=== PATIENT | female | born 1960 | race Caucasian/White ===

== ENCOUNTER 2020-07-09 07:37 | Outpatient (CLI) | payer BC, SELFPAY ==
[2020-07-09 08:23] LABS: Basophils Percent Auto 0.7 % (0.2-1.2); Eosinophils Absolute Auto 0.1 K/mm3 (0-0.3); Eosinophils Percent Auto 2.3 % (0-4.4); Hematocrit 43.9 % (37.0-47.0); Hemoglobin 13.9 g/dL (12.0-15.0); Immature Granulocyte Absolute 0.01 K/mm3 (0.00-0.031); Immature Granulocyte Percent A 0.2 % (0-0.5); Lymphocytes Absolute Auto 1.78 K/mm3 (0.9-3.2); Lymphocytes Percent Auto 30.8 % (18.3-44.2); Mean Corpuscular HGB Conc 31.7 g/dl (32-36); Mean Corpuscular Hemoglobin 30.4 pg (26-34); Mean Corpuscular Volume 96.1 fl (80-100); Mean Platelet Volume 9.9 fl (7.4-10.4); Monocytes Absolute Auto 0.5 K/mm3 (0.1-0.6); Monocytes Percent Auto 8.3 % (2.6-8.5); Neutrophils Absolute Auto 3.3 K/mm3 (1.3-6.7); Neutrophils Percent Auto 57.7 % (45.5-73.1); Platelet Count Result 365 k/mm3 (150-375); Red Blood Count 4.57 M/mm3 (4.2-5.4); Red Cell Distribution Width 13.4 % (11.5-14.5); White Blood Count 5.8 K/mm3 (4.5-10.0)
[2020-07-09 08:43] LABS: Alanine Aminotransferase 20 U/L (4-35); Albumin Level 4.6 g/dL (3.5-5.1); Alkaline Phosphatase 72 U/L (38-126); Anion Gap 8 mmol/L (8-16); Aspartate Amino Transferase 34 U/L (14-36); Bilirubin,Total 0.6 mg/dL (0.2-1.3); Blood Urea Nitrogen 16 mg/dL (7-17); Calcium 9.6 mg/dL (8.4-10.2); Carbon Dioxide 29 mmol/L (22-30); Chloride 102 mmol/L (98-107); Cholesterol 310 mg/dL (0-200); Estimated Glomerular Filt Rate > 60; Glucose 98 mg/dL (65-105); HDL Direct 88 mg/dL; Sodium 139 mmol/L (137-145); Triglycerides 116 mg/dL (<150)
[2020-07-09 08:54] LABS: LDL Cholesterol Direct 164 mg/dL
[2020-07-09 09:40] LABS: Thyroid Stimulating Hormone > 100.000 uIU/mL (0.465-4.680)
[2020-07-09 09:42] LABS: Free T4 Free Thyroxine 0.16 ng/mL (0.78-2.19)
[2020-07-09 09:47] LABS: Folic Acid 16.4 ng/mL (2.76->20)
== END 2020-07-09 07:38 | disposition home or self-care (01) ==
PROVIDERS: Family Provider Internal Medicine; PCP Internal Medicine; Visit Provider Internal Medicine
DX: Z00.00 Encounter for general adult medical examination without abnormal findings (principal); R53.83 Other fatigue; E03.9 Hypothyroidism, unspecified
CPT/HCPCS: 36415; 80053; 80061; 82607; 82746; 84439; 84443; 85025

== ENCOUNTER 2020-07-28 08:00 | Outpatient (CLI) | payer BC, SELFPAY ==
--- NOTE | ~2020-07-28 | MM_ITS ---
EXAMINATION: MM screening tray BI w wander HISTORY: Screening mammogram TECHNIQUE: Craniocaudal and mediolateral oblique 3-D tomosynthesis images were obtained and synthetic 2-D images were generated. CAD analysis was submitted and interpreted. COMPARISON: 05/13/2017, 05/07/2016, 05/05/2015 bilateral digital screening mammogram examinations BREAST PARENCHYMAL COMPOSITION: There are scattered areas of fibroglandular density. FINDINGS: There is no evidence of suspicious mass, calcification, or architectural distortion to sugg est malignancy in either breast. There has been no suspicious interval change. IMPRESSION: 1. No mammographic evidence of malignancy. 2. Recommend routine screening mammography in one year. BI-RADS Category 1: Negative Reviewed, dictated and finalized at location A. 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
== END 2020-07-28 08:01 | disposition home or self-care (01) ==
LOC: ANHIMG 08:05
PROVIDERS: PCP Internal Medicine; Visit Provider Nurse Practitioner Obstetrics & Gynecology
DX: Z12.31 Encounter for screening mammogram for malignant neoplasm of breast (principal)
CPT/HCPCS: 77063; 77067

== ENCOUNTER 2021-04-28 09:26 | Outpatient (CLI) | payer BC, SELFPAY ==
[2021-04-28 09:51] LABS: Hemoglobin 13.9 g/dL (12.0-15.0); Mean Corpuscular HGB Conc 32.3 g/dl (32-36); Mean Corpuscular Hemoglobin 30.5 pg (26-34); Mean Corpuscular Volume 94.3 fl (80-100); Mean Platelet Volume 9.5 fl (7.4-10.4); Platelet Count Result 375 k/mm3 (150-375); Red Blood Count 4.56 M/mm3 (4.2-5.4); Red Cell Distribution Width 12.3 % (11.5-14.5); White Blood Count 5.9 K/mm3 (4.5-10.0)
[2021-04-28 10:06] LABS: Alanine Aminotransferase 25 U/L (4-35); Albumin Level 4.6 g/dL (3.5-5.1); Alkaline Phosphatase 87 U/L (38-126); Anion Gap 9 mmol/L (8-16); Aspartate Amino Transferase 29 U/L (14-36); Bilirubin,Total 0.5 mg/dL (0.2-1.3); Blood Urea Nitrogen 20 mg/dL (7-17); Calcium 9.6 mg/dL (8.4-10.2); Carbon Dioxide 28 mmol/L (22-30); Chloride 104 mmol/L (98-107); Cholesterol 239 mg/dL (0-200); Estimated Glomerular Filt Rate > 60; Glucose 102 mg/dL (65-110); HDL Direct 81 mg/dL; Potassium 4.4 mmol/L (3.4-5.0); Sodium 141 mmol/L (137-145); Triglycerides 57 mg/dL (<150)
[2021-04-28 10:17] LABS: LDL Cholesterol Direct 116 mg/dL
[2021-04-28 10:24] LABS: Free T4 Free Thyroxine 1.05 ng/mL (0.78-2.19)
[2021-04-28 11:12] LABS: Folic Acid 9.9 ng/mL (2.76->20)
== END 2021-04-28 09:27 | disposition home or self-care (01) ==
LOC: ANHLAB 09:28
PROVIDERS: PCP Internal Medicine; Visit Provider Physician Assistant
DX: Z00.00 Encounter for general adult medical examination without abnormal findings (principal)
CPT/HCPCS: 36415; 80053; 80061; 82607; 82746; 84439; 84443; 85027

== ENCOUNTER 2021-05-03 08:59 | Outpatient (CLI) | payer BC, SELFPAY ==
--- NOTE | ~2021-05-03 | XR_ITS ---
XR chest 2V DATE: 05/03/2021 09:11 INDICATION: Productive cough for months TECHNIQUE: PA and lateral views COMPARISON: 10/23/2018 2 view chest FINDINGS: Normal heart size. No hilar or mediastinal enlargement. No pulmonary infiltrate or consolid ation, pleural effusion or pulmonary vascular congestion or pneumothorax. Minimal thoracic scoliosis. Old healed left posterolateral fourth rib fracture. IMPRESSION: No active cardiopulmonary disease Reviewed, dictated and finalized at location A. 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
== END 2021-05-03 09:00 | disposition home or self-care (01) ==
LOC: ANHIMG 09:00
PROVIDERS: PCP Internal Medicine; Visit Provider Physician Assistant
DX: R05.9 Cough, unspecified (principal); M41.9 Scoliosis, unspecified
CPT/HCPCS: 71046

== ENCOUNTER 2021-10-04 07:54 | Outpatient (CLI) | payer BC, SELFPAY ==
--- NOTE | ~2021-10-04 | MM_ITS ---
EXAMINATION: MM screening tray BI w wander HISTORY: Screening mammogram TECHNIQUE: Craniocaudal and mediolateral oblique 3-D tomosynthesis images were obtained and synthetic 2-D images were generated. CAD analysis was submitted and interpreted. COMPARISON: July 28, 2020, May 13, 2017, May 07, 2016 bilateral screening mammogram exa minations BREAST PARENCHYMAL COMPOSITION: There are scattered areas of fibroglandular density. FINDINGS: There is no evidence of suspicious mass, calcification, or architectural distortion to sugg est malignancy in either breast. There has been no suspicious interval change. IMPRESSION: 1. No mammographic evidence of malignancy. 2. Recommend routine screening mammography in one year. BI-RADS Category 1: Negative Reviewed, dictated and finalized at location A.
== END 2021-10-04 07:55 | disposition home or self-care (01) ==
LOC: ANHIMG 07:55
PROVIDERS: PCP Internal Medicine; Visit Provider Internal Medicine
DX: Z12.31 Encounter for screening mammogram for malignant neoplasm of breast (principal)
CPT/HCPCS: 77063; 77067

== ENCOUNTER 2022-06-04 07:31 | Outpatient (CLI) | payer BC, SELFPAY ==
[2022-06-04 08:00] LABS: Basophils Absolute Auto 0.1 K/mm3 (0.0-0.1); Basophils Percent Auto 0.8 % (0.2-1.2); Eosinophils Absolute Auto 0.1 K/mm3 (0-0.3); Eosinophils Percent Auto 1.6 % (0-4.4); Hematocrit 44.8 % (37.0-47.0); Hemoglobin 14.3 g/dL (12.0-15.0); Immature Granulocyte Absolute 0.02 K/mm3 (0.00-0.031); Immature Granulocyte Percent A 0.3 % (0-0.5); Lymphocytes Absolute Auto 2.01 K/mm3 (0.9-3.2); Lymphocytes Percent Auto 32.2 % (18.3-44.2); Mean Corpuscular HGB Conc 31.9 g/dl (32-36); Mean Corpuscular Hemoglobin 29.9 pg (26-34); Mean Corpuscular Volume 93.5 fl (80-100); Mean Platelet Volume 9.9 fl (7.4-10.4); Monocytes Absolute Auto 0.5 K/mm3 (0.1-0.6); Neutrophils Absolute Auto 3.6 K/mm3 (1.3-6.7); Neutrophils Percent Auto 57.1 % (45.5-73.1); Platelet Count Result 350 k/mm3 (150-375); Red Blood Count 4.79 M/mm3 (4.2-5.4); Red Cell Distribution Width 13.2 % (11.5-14.5); White Blood Count 6.2 K/mm3 (4.5-10.0)
[2022-06-04 08:32] LABS: Free T4 Free Thyroxine 0.21 ng/mL (0.78-2.19)
[2022-06-04 08:58] LABS: Alanine Aminotransferase 22 U/L (6-35); Albumin Level 4.1 g/dL (3.5-5.1); Alkaline Phosphatase 58 U/L (38-126); Anion Gap 5 mmol/L (8-16); Aspartate Amino Transferase 32 U/L (14-36); Bilirubin,Total 0.5 mg/dL (0.2-1.3); Blood Urea Nitrogen 16 mg/dL (7-17); Calcium 9.2 mg/dL (8.4-10.2); Carbon Dioxide 29 mmol/L (22-30); Chloride 105 mmol/L (98-107); Cholesterol 285 mg/dL (0-200); Estimated Glomerular Filt Rate 57; Glucose 93 mg/dL (65-110); HDL Direct 78 mg/dL; Potassium 4.5 mmol/L (3.4-5.0); Sodium 139 mmol/L (137-145); Triglycerides 145 mg/dL (<150)
[2022-06-04 09:09] LABS: LDL Cholesterol Direct 145 mg/dL
[2022-06-04 09:34] LABS: Thyroid Stimulating Hormone > 100.000 uIU/mL (0.465-4.680)
[2022-06-04 10:02] LABS: Folic Acid 13.2 ng/mL (2.76->20)
[2022-06-07 03:22] LABS: Thyroid Peroxidase Antibodies 14 IU/mL (<9)
== END 2022-06-04 07:32 | disposition home or self-care (01) ==
LOC: ANHLAB 07:33
PROVIDERS: PCP Internal Medicine; Visit Provider Physician Assistant
DX: Z00.00 Encounter for general adult medical examination without abnormal findings (principal); E03.9 Hypothyroidism, unspecified
CPT/HCPCS: 36415; 80053; 80061; 82607; 82746; 84439; 84443; 85025; 86376

== ENCOUNTER 2022-08-07 10:22 | Outpatient (CLI) | payer BC, SELFPAY ==
[2022-08-07 12:14] LABS: Free T4 Free Thyroxine 1.27 ng/mL (0.78-2.19)
[2022-08-07 12:22] LABS: Influenza A QL RT-PCR Negative (Negative); Influenza B QL RT-PCR Negative (Negative); SARS-CoV-2 RNA PCR Positive
== END 2022-08-07 10:23 | disposition home or self-care (01) ==
LOC: ANHLAB 10:24
PROVIDERS: PCP Internal Medicine; Referring Provider Physician Assistant; Visit Provider Internal Medicine
DX: J02.9 Acute pharyngitis, unspecified (principal); E03.9 Hypothyroidism, unspecified; U07.1 COVID-19
CPT/HCPCS: 36415; 84439; 84443; 87636

== ENCOUNTER 2022-11-10 06:59 | Outpatient (CLI) | payer BC, SELFPAY ==
[2022-11-10 09:12] LABS: Thyroid Stimulating Hormone 0.098 uIU/mL (0.465-4.680)
[2022-11-10 11:07] LABS: Free T4 Free Thyroxine 1.67 ng/mL (0.78-2.19)
== END 2022-11-10 07:00 | disposition home or self-care (01) ==
LOC: ANHLAB 07:01
PROVIDERS: PCP Internal Medicine; Visit Provider Physician Assistant
DX: E03.9 Hypothyroidism, unspecified (principal)
CPT/HCPCS: 36415; 84439; 84443

== ENCOUNTER 2022-12-25 06:35 | Outpatient (CLI) | payer BC, SELFPAY ==
[2022-12-25 07:35] LABS: Free T4 Free Thyroxine 1.17 ng/mL (0.78-2.19)
== END 2022-12-25 06:36 | disposition home or self-care (01) ==
LOC: ANHLAB 06:36
PROVIDERS: PCP Internal Medicine; Visit Provider Physician Assistant
DX: E03.9 Hypothyroidism, unspecified (principal)
CPT/HCPCS: 36415; 84439; 84443

== ENCOUNTER 2023-05-04 06:53 | Outpatient (CLI) | payer BC, SELFPAY ==
[2023-05-04 08:00] LABS: Thyroid Stimulating Hormone < 0.015 uIU/mL (0.465-4.680)
[2023-05-04 08:47] LABS: Free T4 Free Thyroxine 1.69 ng/mL (0.78-2.19)
== END 2023-05-04 06:54 | disposition home or self-care (01) ==
LOC: ANHLAB 06:54
PROVIDERS: PCP Internal Medicine; Visit Provider Physician Assistant
DX: E03.9 Hypothyroidism, unspecified (principal)
CPT/HCPCS: 36415; 84439; 84443

== ENCOUNTER 2023-06-26 06:55 | Outpatient (CLI) | payer BC, SELFPAY ==
[2023-06-26 07:42] LABS: Basophils Percent Auto 0.7 % (0.2-1.2); Eosinophils Absolute Auto 0.1 K/mm3 (0-0.3); Eosinophils Percent Auto 1.4 % (0-4.4); Hematocrit 42.2 % (37.0-47.0); Hemoglobin 13.5 g/dL (12.0-15.0); Immature Granulocyte Absolute 0.01 K/mm3 (0.00-0.031); Immature Granulocyte Percent A 0.2 % (0-0.5); Lymphocytes Absolute Auto 2.31 K/mm3 (0.9-3.2); Lymphocytes Percent Auto 39.1 % (18.3-44.2); Mean Corpuscular Hemoglobin 28.6 pg (26-34); Mean Corpuscular Volume 89.4 fl (80-100); Mean Platelet Volume 9.8 fl (7.4-10.4); Monocytes Absolute Auto 0.6 K/mm3 (0.1-0.6); Monocytes Percent Auto 9.3 % (2.6-8.5); Neutrophils Absolute Auto 2.9 K/mm3 (1.3-6.7); Neutrophils Percent Auto 49.3 % (45.5-73.1); Platelet Count Result 392 k/mm3 (150-375); Red Blood Count 4.72 M/mm3 (4.2-5.4); Red Cell Distribution Width 11.9 % (11.5-14.5); White Blood Count 5.9 K/mm3 (4.5-10.0)
[2023-06-26 07:51] LABS: Alanine Aminotransferase 17 U/L (6-35); Albumin Level 4.1 g/dL (3.5-5.1); Alkaline Phosphatase 87 U/L (38-126); Anion Gap 8 mmol/L (8-16); Aspartate Amino Transferase 28 U/L (14-36); Bilirubin,Total 0.5 mg/dL (0.2-1.3); Blood Urea Nitrogen 20 mg/dL (7-17); Calcium 9.3 mg/dL (8.4-10.2); Carbon Dioxide 27 mmol/L (22-30); Chloride 104 mmol/L (98-107); Cholesterol 215 mg/dL (0-200); Estimated Glomerular Filt Rate > 60; Glucose 87 mg/dL (65-110); HDL Direct 67 mg/dL; Potassium 4.1 mmol/L (3.4-5.0); Sodium 139 mmol/L (137-145); Triglycerides 67 mg/dL (<150)
[2023-06-26 08:02] LABS: LDL Cholesterol Direct 101 mg/dL
[2023-06-26 08:17] LABS: Thyroid Stimulating Hormone < 0.015 uIU/mL (0.465-4.680)
[2023-06-26 08:18] LABS: Free T4 Free Thyroxine 2.31 ng/mL (0.78-2.19)
== END 2023-06-26 06:56 | disposition home or self-care (01) ==
LOC: ANHLAB 06:56
PROVIDERS: PCP Internal Medicine; Visit Provider Physician Assistant
DX: Z00.00 Encounter for general adult medical examination without abnormal findings (principal); E03.9 Hypothyroidism, unspecified
CPT/HCPCS: 36415; 80053; 80061; 84439; 84443; 85025

== ENCOUNTER 2023-10-17 07:29 | Outpatient (CLI) | payer BC, SELFPAY ==
--- NOTE | ~2023-10-17 | MM_ITS ---
EXAMINATION: MM screening tray BI w wander HISTORY: Screening mammogram TECHNIQUE: Craniocaudal and mediolateral oblique 3-D tomosynthesis images were obtained and synthetic 2-D images were generated. CAD analysis was submitted and interpreted. COMPARISON: 10/04/2021, 07/28/2020 BREAST PARENCHYMAL COMPOSITION:Not Dense. There are scattered areas of fibroglandular density. FINDINGS: No suspicious mass, calcification, or architectural distortion are identified in either fernanda ast to suggest malignancy. There has been no suspicious interval change. IMPRESSION: No mammographic evidence of malignancy. Recommend routine screening mammography in one year. BI-RADS Category 1: Negative Reviewed, dictated and finalized at location .
== END 2023-10-17 07:30 | disposition home or self-care (01) ==
PROVIDERS: PCP Internal Medicine; Visit Provider Physician Assistant
DX: Z12.31 Encounter for screening mammogram for malignant neoplasm of breast (principal)
CPT/HCPCS: 77063; 77067

== ENCOUNTER 2023-11-13 01:05 | Day surgery (SDC) | payer BC, SELFPAY ==
[2023-10-25 12:33] VITALS: BMI 28.0
[2023-11-13 07:08] VITALS: BP 129/57; PULSE 74; RESP 16; TEMP 36.1; O2SAT 100
[2023-11-13] MEDS: LACTATED RINGERS 1,000 ML 150 ML IV CONT (07:15)
--- NOTE | 2023-11-13 08:03 | WPDANESEPPF ---
Anes - Initial Pre Proc Eval Procedure: Operation Date: 11/13/23 08:30 Proposed Procedures p Screening Colonoscopy - Jordan Orellana MD Date/Time: 11/13/23 08:03 Surgeon: Jordan Orellana MD Pre Op Diagnosis: neoplasm screening Patient Data Age: 62 Gender: F Height: 1.68 m Weight: 77.1 kg Last Vital Signs Temp 97 F L 11/13/23 07:08 Pulse 74 11/13/23 07:08 Resp 16 11/13/23 07:08 BP 129/57 L 11/13/23 07:08 Pulse Ox 100 11/13/23 07:08 O2 Del Method Room Air 11/13/23 07:08 Allergies Allergy/AdvReac Type Severity Reaction Status Date / Time No Known Allergies Allergy NONE Unverified 11/13/23 07:07 Home Medications Medication Instructions Recorded Confirmed Type melatonin 5 mg capsule 5 mg PO HS 05/04/22 10/25/23 History levothyroxine 112 mcg tablet 112 mcg PO DAILY #90 tabs 08/10/23 10/25/23 Rx levothyroxine 125 mcg tablet 125 mcg PO DAILY #90 tabs 08/10/23 10/25/23 Rx Patient hx anesthesia problems: none Family hx anesthesia problems: none Results Review: All pre-operative results and documents have been reviewed as part of the pre-operative evaluation. [facility] Past Medical History Medical History Arthritis Asthma Thyroid disease Tubal Surgical History Surgical History H/O laparoscopy elbow Family History Family History Father Hypertension Patient's father is Sibling Patient's sister is in good health Patient's brother is in good health Mother Patient's mother is Social History Social History Smoking packs per day: 2 Smoking cigarettes per day: 40.0 Years smoked: 7 Smoking pack-years: 14.00 Smoking status: Never smoker Second hand tobacco smoke exposure: No Smoking end date: 06/17/81 Alcohol intake: current Substance use: never Substance use type: does not use Lack of Transportation: No Lack of Food: Never True Current Housing: I Have Housing Concerned About Future Housing: No Difficulty Paying Gas/Electric Bills: No Difficulty Paying for Meds: No Currently Unemployed: No Education: Bachelor's Degree Difficulty w/ Childcare or Family Care: No Living arrangements: with family Spiritual care concerns: No Anes - Eval Final PreProcedure Day of Procedure 11/13/23 08:03 Patient weight: normal Heart: regular rate and rhythm Lungs: clear to auscultation Airway: Mallampati scale class II Neurological: alert and oriented Last oral intake: >/= 8 hours ASA classification: II Emergent: no Anesthetic plan: proceed Anesthesia type and monitoring: general GIVS and standard monitoring Results Review: All pre-operative results and documents have been reviewed as part of the pre-operative evaluation. Informed Consent: The patient's anesthetic plan and its attendant risks and benefits were discussed with the patient/family/POA. Questions were solicited and answers provided to the satisfaction of the patient/family/POA.
--- NOTE | 2023-11-13 08:17 | PM.HPGS ---
History of Present Illness History of Present Illness Consent: Risks, benefits, and alternatives have been discussed and questions answered. Patient agrees to proceed with procedure. Chief complaint: neoplasm screening Narrative: Pricilla Frye is a 62 year old female here for screening colonoscopy, last one 10 years ago Review of Systems Review of Systems: All systems reviewed & are unremarkable except as noted in HPI and below PMFSH Past Medical History Medical History (Updated 11/13/23 @ 08:19 by Jordan Orellana MD) Arthritis Asthma Colon cancer screening Thyroid disease Tubal Surgical History Surgical History H/O laparoscopy elbow Family History Family History Father Hypertension Patient's father is Sibling Patient's sister is in good health Patient's brother is in good health Mother Patient's mother is Social History Social History Smoking packs per day: 2 Smoking cigarettes per day: 40.0 Years smoked: 7 Smoking pack-years: 14.00 Smoking status: Never smoker Second hand tobacco smoke exposure: No Smoking end date: 06/17/81 Alcohol intake: current Substance use: never Substance use type: does not use Lack of Transportation: No Lack of Food: Never True Current Housing: I Have Housing Concerned About Future Housing: No Difficulty Paying Gas/Electric Bills: No Difficulty Paying for Meds: No Currently Unemployed: No Education: Bachelor's Degree Difficulty w/ Childcare or Family Care: No Living arrangements: with family Spiritual care concerns: No Meds Home Medications and Allergies Home Medications Medication Instructions Recorded Confirmed Type melatonin 5 mg capsule 5 mg PO HS 05/04/22 10/25/23 History levothyroxine 112 mcg tablet 112 mcg PO DAILY #90 tabs 08/10/23 10/25/23 Rx levothyroxine 125 mcg tablet 125 mcg PO DAILY #90 tabs 08/10/23 10/25/23 Rx Allergies Allergy/AdvReac Type Severity Reaction Status Date / Time No Known Allergies Allergy NONE Unverified 11/13/23 07:07 Vital Signs Vital Signs - 24 hr 11/13/23 07:08 Temperature 97 F L Pulse Rate 74 Respiratory Rate 16 Blood Pressure 129/57 L Pulse Oximetry 100 Oxygen Delivery Room Air Exam Const: General: comfortable and no acute distress HENMT: Face/Nose/Sinus: Normal nares present Eyes: General: appearance normal, both eyes and all related structures Neck: Neck: no JVD Resp: Auscultation: clear to auscultation bilaterally Cardio: Rate: regular rate Rhythm: regular rhythm GI: Inspection: non-distended GI Palp: Yes Soft to palpation Skin: General skin exam: normal color Neuro: General: gait normal Speech: normal speech Extrem: General: normal to inspection Psych: Mental Status: mental status grossly normal Assessment and Plan Assessment and plan (1) Colon cancer screening: Code(s): Z12.11 - Encounter for screening for malignant neoplasm of colon Status: Acute Assessment and Plan: colonoscopy
[2023-11-13 08:41] VITALS: BP 99/50; PULSE 69; RESP 19; O2SAT 99
[2023-11-13 08:51] VITALS: BP 98/82; PULSE 69; RESP 20; O2SAT 99
[2023-11-13 09:01] VITALS: BP 114/83; PULSE 66; RESP 19; O2SAT 100
== END 2023-11-13 09:04 | disposition home or self-care (01) ==
PROVIDERS: PCP Internal Medicine; Referring Provider Physician Assistant; Visit Provider Internal Medicine Gastroenterology
PROC: 0DJD8ZZ Inspection of Lower Intestinal Tract, Via Natural or Artificial Opening Endoscopic (ICD-10-PCS; CPT 45378; principal; 2023-11-13 08:30)
DX: Z12.11 Encounter for screening for malignant neoplasm of colon (principal); K57.30 Diverticulosis of large intestine without perforation or abscess without bleeding; K64.8 Other hemorrhoids; E07.9 Disorder of thyroid, unspecified; Z87.891 Personal history of nicotine dependence
CPT/HCPCS: 45378; J2704; J7120

== ENCOUNTER 2024-05-23 06:43 | Outpatient (CLI) | payer BC, SELFPAY ==
[2024-05-23 07:27] LABS: Alanine Aminotransferase 23 U/L (6-35); Albumin Level 4.6 g/dL (3.5-5.1); Alkaline Phosphatase 93 U/L (38-126); Anion Gap 5 mmol/L (4-12); Aspartate Amino Transferase 32 U/L (14-36); Bilirubin,Total 0.5 mg/dL (0.2-1.3); Blood Urea Nitrogen 19 mg/dL (7-17); Calcium 9.4 mg/dL (8.4-10.2); Carbon Dioxide 29 mmol/L (22-30); Chloride 104 mmol/L (98-107); Estimated Glomerular Filt Rate > 60; Glucose 96 mg/dL (65-110); Potassium 4.1 mmol/L (3.4-5.0); Sodium 138 mmol/L (137-145)
[2024-05-23 07:46] LABS: Free T4 Free Thyroxine 0.27 ng/dL (0.78-2.19)
[2024-05-23 08:01] LABS: Thyroid Stimulating Hormone > 100.000 uIU/mL (0.465-4.680)
== END 2024-05-23 06:44 | disposition home or self-care (01) ==
LOC: ANHLAB 06:45
PROVIDERS: PCP Nurse Practitioner; Visit Provider Nurse Practitioner
DX: E03.9 Hypothyroidism, unspecified (principal); Z00.00 Encounter for general adult medical examination without abnormal findings
CPT/HCPCS: 36415; 80053; 84439; 84443

== ENCOUNTER 2024-05-27 10:21 | Outpatient (CLI) | payer BC, SELFPAY ==
[2024-05-27 11:40] LABS: Free T4 Free Thyroxine 0.24 ng/dL (0.78-2.19)
[2024-05-27 21:28] LABS: Thyroid Stimulating Hormone > 100.000 uIU/mL (0.465-4.680)
[2024-05-29 07:25] LABS: Thyroid Peroxidase Antibodies 3 IU/mL (<9)
== END 2024-05-27 10:22 | disposition home or self-care (01) ==
PROVIDERS: PCP Nurse Practitioner; Visit Provider Nurse Practitioner
DX: E03.9 Hypothyroidism, unspecified (principal)
CPT/HCPCS: 36415; 84439; 84443; 86376

== ENCOUNTER 2024-06-01 09:54 | Outpatient (CLI) | payer BC, SELFPAY ==
--- NOTE | ~2024-06-01 | US_ITS ---
Thyroid ultrasound. Clinical History: Hypothyroid Findings: Real-time sonography of the thyroid gland was performed. The right lobe measures 0.9 x 0.7 x 0.7 cm. The left lobe measures 2.2 x 0.8 x 0.9 cm. The isthmus is 1 mm in AP diameter. Impression: Small thyroid gland. No discrete thyroid nodule evident.. Reviewed, dictated and finalized at location . T INTERN Impression: Small thyroid gland. No discrete thyroid nodule evident..
== END 2024-06-01 09:55 | disposition home or self-care (01) ==
LOC: GOSHIMG 09:55
PROVIDERS: PCP Nurse Practitioner; Visit Provider Nurse Practitioner
DX: E03.9 Hypothyroidism, unspecified (principal)
CPT/HCPCS: 76536

== ENCOUNTER 2024-10-17 07:29 | Outpatient (CLI) | payer BC, SELFPAY ==
--- NOTE | ~2024-10-17 | MM_ITS ---
EXAMINATION: MM screening tray BI w wander HISTORY: Screening TECHNIQUE: Craniocaudal and mediolateral oblique 3-D tomosynthesis images were obtained and synthetic 2-D images were generated. CAD analysis was submitted and interpreted. COMPARISON: Comparison to multiple prior studies sequentially, with oldest reviewed study dated 04/18 Not dense: There are scattered areas of fibroglandular density.. BREAST PARENCHYMAL COMPOSITION: There are scattered areas of fibroglandular density. FINDINGS: There is no evidence of suspicious mass, calcification, or architectural distortion to sugg est malignancy in either breast. There has been no suspicious interval change. IMPRESSION: 1. No mammographic evidence of malignancy. 2. Recommend routine screening mammography in one year. BI-RADS Category 1: Negative Reviewed, dictated and finalized at location A.
--- OUTSIDE RECORDS SUMMARY | 2024-10-17 15:49 | XMS_ITS | Clinical Summary ---
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2 F) 09/05/2022 8:11 AM CDT Respiratory Rate 16 09/05/2022 8:11 AM CDT Oxygen Saturation 100% 09/05/2022 8:11 AM CDT Inhaled Oxygen Concentration - - Weight 79.4 kg (175 lb) 09/05/2022 8:11 AM CDT Height 167.6 cm (5' 6 ) 09/05/2022 8:11 AM CDT Body Mass Index 28.25 09/05/2022 8:11 AM CDT Plan of Treatment Health Maintenance Due Date Last Done Comments Breast Cancer Screening-Mammogram 1960 Cervical Cancer Screening 1961 Colon Cancer Screening-Colonoscopy 1961 Depression Screening 1961 Hepatitis C Screening 1961 DTaP/Tdap/Td Vaccine (1 - Tdap) 1972 Hepatitis B Screening 11/17/1979 Regular Well Visit/Exam 18-64 11/17/1979 Pneumococcal vaccine <65 (1 of 2 - PCV) 1980 Zoster Vaccine (1 of 2) 11/17/2011 Influenza Vaccine (Season Ended) 2025 Insurance [employer] OOS [employer] OOS Care Teams Pressure Control Supervisor Relationship Specialty Start Date End Date Blake Regalado MD [address] [facility] [address] [place] [address] PCP - General Internal Medicine 09/05/22
--- OUTSIDE RECORDS SUMMARY | 2024-10-17 15:49 | XMS_ITS | Referral Summary ---
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
== END 2024-10-17 07:30 | disposition home or self-care (01) ==
LOC: ANHIMG 07:31
PROVIDERS: PCP Internal Medicine; Visit Provider Nurse Practitioner
DX: Z12.31 Encounter for screening mammogram for malignant neoplasm of breast (principal)
CPT/HCPCS: 77063; 77067

== ENCOUNTER 2024-11-07 06:58 | Outpatient (CLI) | payer BC, SELFPAY ==
--- OUTSIDE RECORDS SUMMARY | 2024-11-07 07:01 | XMS_ITS | Clinical Summary ---
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
--- OUTSIDE RECORDS SUMMARY | 2024-11-07 07:01 | XMS_ITS | Referral Summary ---
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
[2024-11-07 08:08] LABS: Free T4 Free Thyroxine 1.76 ng/dL (0.78-2.19)
[2024-11-07 08:22] LABS: Thyroid Stimulating Hormone 0.032 uIU/mL (0.465-4.680)
[2024-11-10 13:53] LABS: Thyroid Peroxidase Antibodies 3 IU/mL (<9)
== END 2024-11-07 06:59 | disposition home or self-care (01) ==
LOC: ANHLAB 06:59
PROVIDERS: PCP Nurse Practitioner; Visit Provider Internal Medicine
DX: E03.9 Hypothyroidism, unspecified (principal)
CPT/HCPCS: 36415; 84439; 84443; 86376

== ENCOUNTER 2025-01-05 08:52 | Outpatient (CLI) | payer BC, SELFPAY ==
--- NOTE | ~2025-01-05 | MR_ITS ---
EXAMINATION: MR lumbar spine wo con DATE: 01/05/2025 09:15 INDICATION: Anesthesia of skin TECHNIQUE: Magnetic resonance imaging (MRI) of the lumbar spine was performed without intravenous con trast. Sequences included sagittal T2-weighted FSE, sagittal T2-weighted FS FSE, sagittal T1-weighted FSE, and axial T2-weighted FSE. COMPARISON: None FINDINGS: Transitional S1 segment which is lumbarized on the left and sacralized on the right. There are 5 more cephalad nonrib-bearing lumbar segments L1-L5. 6 degrees upper lumbar dextrocurvature. 3 mm anteroli sthesis L4 on L5. Vertebral body heights are normal. Normal marrow signal. Mild disc height loss at L4-5 and L5-S1. The conus medullaris terminates at L1-L2. There is normal signal in the caudal spinal cord. Right S3 Tarlov cyst. Paravertebral soft tissues are unremarkable. The following disc levels a re specifically discussed: T12-L1: Disc is minimally bulging. There is moderate right and moderate left facet joint osteoarthrit is. There is no neural foraminal stenosis. There is no central canal stenosis. L1-L2: Disc is mildly bulging. There is mild bilateral facet joint osteoarthritis. There is no neural foraminal stenosis. There is mild central canal stenosis. L2-L3: Disc is minimally bulging. There is mild bilateral facet joint osteoarthritis. There is no tomasz ral foraminal stenosis. There is no central canal stenosis. L3-L4: Disc is minimally bulging. There is mild to moderate left and moderate right facet joint osteo arthritis. There is mild right and minimal left neural foraminal stenosis. There is minimal central c anal stenosis. L4-L5: The disc does not extend beyond the more posterior L5 superior endplate margin. There is sever e bilateral facet joint osteoarthritis. There is mild right neural foraminal stenosis. There is mild central canal stenosis. L5-S1: Disc is bulging. There is moderate left and severe right facet joint osteoarthritis. There is minimal bilateral neural foraminal stenosis. There is no central canal stenosis. IMPRESSION: 1. Mild lumbar spondylosis. Reviewed, dictated and finalized at location A. IMPRESSION: 1. Mild lumbar spondylosis.
== END 2025-01-05 08:53 | disposition home or self-care (01) ==
LOC: GOSHIMG 08:52
PROVIDERS: PCP Orthopaedic Surgery; Visit Provider Orthopaedic Surgery
DX: R20.0 Anesthesia of skin (principal); M47.896 Other spondylosis, lumbar region
CPT/HCPCS: 72148

== ENCOUNTER 2025-01-30 07:11 | Outpatient (CLI) | payer BC, SELFPAY ==
--- OUTSIDE RECORDS SUMMARY | 2025-01-30 07:14 | XMS_ITS | Clinical Summary ---
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
[2025-01-30 08:23] LABS: Free T4 Free Thyroxine 1.24 ng/dL (0.78-2.19)
[2025-01-30 08:37] LABS: Thyroid Stimulating Hormone 1.280 uIU/mL (0.465-4.680)
== END 2025-01-30 07:12 | disposition home or self-care (01) ==
LOC: ANHLAB 07:13
PROVIDERS: PCP Nurse Practitioner; Visit Provider Internal Medicine
DX: E03.9 Hypothyroidism, unspecified (principal); E66.3 Overweight
CPT/HCPCS: 36415; 84439; 84443

== ENCOUNTER 2025-02-05 07:37 | Outpatient (CLI) | payer BC, SELFPAY ==
--- NOTE | ~2025-02-05 | MR_ITS ---
EXAMINATION: MR thoracic spine wo/w con DATE: 02/05/2025 09:01 INDICATION: Anesthesia of skin TECHNIQUE: Magnetic resonance imaging (MRI) of the thoracic spine was performed without and with 17 mL Multihance intravenous Sagittal localizer T1-weighted FSE of the cervicothoracic spine was obtained. Sequences included sagittal T2- weighted FSE, sagittal T2-weighted FS FSE, sagittal T1-weighted FSE and axial T1-weighted SE. Postcontrast sequences included axial T2-weighted FSE, sagittal T1-weighted FS FSE, and axial T1-weighted FS SE. COMPARISON: Radiographs dated 05/22/2011 FINDINGS: 18 degree upper thoracic levoscoliosis. With compensatory mild dextrocurvature of the more caudal mid to lower thoracic spine. Sagittal alignment is normal. Vertebral body heights are normal. Small T1 and T2 hyperintense hemangioma at T5. Marrow signal is otherwise unremarkable. Moderate disc height loss with disc bulge contributing to mild central canal stenosis at C6-C7. Multilevel mild disc height loss with right-sided predominance from T2-T3 through T4-T5 and more diffuse mild disc height loss at T6-T7 through T10-T11. The discs do not extend beyond the endplate margins with no central canal stenosis throughout the thoracic spine. There is mild to moderate facet osteoarthritis throughout the th oracic spine most prominent on the right side of the upper thoracic spine. There is mild neural foraminal stenosis on the right at T2-T3 and T3-T4. There is normal spinal cord signal. The conus terminates at L1-L2. There is normal spinal cord signal throughout. No abnormally enhancing lesions identified. Paravertebral soft tissues are unremarkable. IMPRESSION: 1. 18 degrees upper thoracic levoscoliosis with mild spondylosis. Reviewed, dictated and finalized at location A.
--- OUTSIDE RECORDS SUMMARY | 2025-02-05 07:40 | XMS_ITS | Clinical Summary ---
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
== END 2025-02-05 07:38 | disposition home or self-care (01) ==
PROVIDERS: PCP Nurse Practitioner; Visit Provider Orthopaedic Surgery
DX: R20.0 Anesthesia of skin (principal); M47.894 Other spondylosis, thoracic region
CPT/HCPCS: 72157; A9577

== ENCOUNTER 2025-04-03 07:01 | Outpatient (CLI) | payer BC, SELFPAY ==
[2025-04-03 07:45] LABS: Hematocrit 43.4 % (37.0-47.0); Hemoglobin 13.8 g/dL (12.0-15.0); Mean Corpuscular HGB Conc 31.8 g/dl (32-36); Mean Corpuscular Hemoglobin 28.7 pg (26-34); Mean Corpuscular Volume 90.2 fl (80-100); Platelet Count Result 373 k/mm3 (150-375); Red Blood Count 4.81 M/mm3 (4.2-5.4); White Blood Count 5.1 K/mm3 (4.5-10.0)
[2025-04-03 08:00] LABS: Alanine Aminotransferase 19 U/L (6-35); Albumin Level 4.3 g/dL (3.5-5.1); Alkaline Phosphatase 94 U/L (38-126); Anion Gap 9 mmol/L (4-12); Aspartate Amino Transferase 25 U/L (14-36); Bilirubin,Total 0.5 mg/dL (0.2-1.3); Blood Urea Nitrogen 17 mg/dL (7-17); Calcium 9.3 mg/dL (8.4-10.2); Carbon Dioxide 24 mmol/L (22-30); Chloride 103 mmol/L (98-107); Estimated Glomerular Filt Rate > 60; Glucose 95 mg/dL (65-110); Potassium 4.2 mmol/L (3.4-5.0); Sodium 136 mmol/L (137-145); Total Protein 7.5 g/dL (6.3-8.2)
[2025-04-03 08:35] LABS: Thyroid Stimulating Hormone 0.904 uIU/mL (0.465-4.680)
[2025-04-03 08:49] LABS: Vitamin B12 327.0 pg/mL (239-931)
[2025-04-03 09:25] LABS: Free T4 Free Thyroxine 1.62 ng/dL (0.78-2.19)
== END 2025-04-03 07:02 | disposition home or self-care (01) ==
LOC: ANHLAB 07:03
PROVIDERS: PCP Nurse Practitioner; Referring Provider Nurse Practitioner; Visit Provider Internal Medicine
DX: E03.9 Hypothyroidism, unspecified (principal); E66.3 Overweight
CPT/HCPCS: 36415; 80053; 82306; 82607; 84439; 84443; 85027

== ENCOUNTER 2025-05-03 15:00 | Outpatient (RCR) | payer BC, SELFPAY ==
--- NOTE | 2025-03-18 12:06 | OPREHPOC ---
Outpatient Therapy Plan of Care This is a Multidisciplinary Plan of Care that may contain components documented by all disciplines (PT, OT, and ST.) PT Problem 1 PT Problem #1 Knowledge Deficit PT Goal 1 Goal / Goal Update [place] with HEP Target Visit 4 PT Goal 2 Goal / Goal Update Report no pain greater than 2/10 Target Visit 8 PT Problem 2 PT Problem #2 Impaired Range of Motion PT Goal 1 Goal / Goal Update 1. Achieve 45 degrees cecelia hip abduction motion to reduce capsular restriction 2. Improve R knee flexion ROM to 120 degrees 3. Demonstrate minimal to no muscle restriction cecelia quads and piriformis Target Visit 8 PT Problem 3 PT Problem #3 Impaired Strength PT Goal 1 Goal / Goal Update 1. Improve cecelia hip abduction strength to 4/5 to improve lateral hip stability strength 2. Improve cecelia hip flexion strength 4+/5 to improve foot clearence Target Visit 8
--- NOTE | 2025-03-18 12:06 | PTOPEVAL1 ---
Assessment and note entered by Mirza Ferrell, PT Evaluation Information Assessment Status Evaluation Diagnosis OA bilateral knees ICD-10 Condition Codes (PT) Pain in right hip M25.551,Pain in left hip M25.552 ,Pain in right knee M25.561,Pain in left knee M25. 562 Onset March 2024 Subjective Information Reports that knee pain is very sporadic and she gets a lot of popping and discomfort. Hip hurts all of the time. Knee feels swollen majority of time and she gets a burning sensation. She is unable to do anything that she was doing prior including long walks and pickle ball. Reported Pain Level Pain Score 5: Self Report Assessment PT Clinical Summary Patient presents with poor hip mobility and strength with consequential knee pain and loss of function R knee ROM. Patient has altered gait pattern and weakness noted in cecelia LE. 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 Plan of Care Interventions Gait Training,Manual Therapy,Neuro Re-education, Therapeutic Activities,Therapeutic Exercise PT Services Indicated Yes Treatment Frequency and 2x/week for 8 visits Duration These treatments will address the objective and functional deficits as defined above. The patient will be advanced safely and appropriately in order for the patient to progress towards his/her prior level of function. Additional exercises will be introduced and as well as a comprehensive home exercise program upon discharge, if needed, ?to ensure carryover of functional gains achieved in the clinic. This treatment plan has been reviewed and agreement upon by the patient.
--- NOTE | 2025-04-19 09:01 | PCPTNOTE ---
Pt canceled due to illness today.
--- NOTE | 2025-05-03 16:53 | OPREHPOC ---
Outpatient Therapy Plan of Care This is a Multidisciplinary Plan of Care that may contain components documented by all disciplines (PT, OT, and ST.) PT Problem 1 PT Problem #1 Knowledge Deficit PT Goal 1 Goal / Goal Update [place] with HEP Target Visit 4 Progress Met PT Goal 2 Goal / Goal Update Report no pain greater than 2/10 Target Visit 8 Progress Met PT Problem 2 PT Problem #2 Impaired Range of Motion PT Goal 1 Goal / Goal Update 1. Achieve 45 degrees cecelia hip abduction motion to reduce capsular restriction 2. Improve R knee flexion ROM to 120 degrees 3. Demonstrate minimal to no muscle restriction cecelia quads and piriformis Target Visit 8 Progress Met PT Problem 3 PT Problem #3 Impaired Strength PT Goal 1 Goal / Goal Update 1. Improve cecelia hip abduction strength to 4/5 to improve lateral hip stability strength 2. Improve cecelia hip flexion strength 4+/5 to improve foot clearence Target Visit 8 Progress Met
--- NOTE | 2025-05-03 16:53 | PTOPDC ---
Assessment and note entered by Mirza Ferrell, PT Evaluation Information Assessment Status Discharge Diagnosis OA bilateral knees ICD-10 Condition Codes (PT) Pain in right hip M25.551,Pain in left hip M25.552 ,Pain in right knee M25.561,Pain in left knee M25. 562 Onset March 2024 Subjective Information Reports that she feels overall that her gait had significantly improved. She has been leery about doing higher level activity due to some instability in the knee. She has a follow up scheduled in May to have a total knee replacement. The pain that she has feels like an internal pressure and she still feels that she does not entirely have the range. Reported Pain Level Pain Score 5: Self Report Assessment PT Clinical Summary Patient has met majority of goals for therapy and is suitable for discharge to [facility] at this time. 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 Plan of Care PT Services Indicated Yes
== END 2025-05-04 08:49 | disposition home or self-care (01) ==
LOC: ANHPT 15:00
PROVIDERS: PCP Nurse Practitioner; Visit Provider Orthopaedic Surgery
DX: M25.561 Pain in right knee (principal); M25.562 Pain in left knee; M25.551 Pain in right hip; M17.0 Bilateral primary osteoarthritis of knee
CPT/HCPCS: 97110; 97140; 97161; 97530

== ENCOUNTER 2025-05-26 07:50 | Outpatient (CLI) | payer BC, SELFPAY ==
--- NOTE | 2025-05-26 08:49 | ECG_ITS ---
Test Date: 2025-05-26 09:02:29 Measurements Intervals [place] Rate: 68 P: 44 AL: 164 QRS: 42 QRSD: 86 T: 35 QT: 357 QTc: 380 Interpretive Statements SINUS RHYTHM NONSPECIFIC T-WAVE ABNORMALITY- ANTEROLAT/INF LEADS BASELINE ARTIFACT- I, II, III, AVR, AVL, AVF, V4-V5 BORDERLINE ECG No previous ECG available for comparison Electronically Signed On 05-26-2025 10:38:55 [employer] by Nato Garcia D.O.
[2025-05-26 09:46] LABS: Hemoglobin A1C 5.6 % (<5.7)
== END 2025-05-26 07:51 | disposition home or self-care (01) ==
PROVIDERS: PCP Nurse Practitioner; Visit Provider Orthopaedic Surgery
DX: M17.11 Unilateral primary osteoarthritis, right knee (principal); Z01.818 Encounter for other preprocedural examination
CPT/HCPCS: 80307; 83036; 86850; 86900; 86901; 87081; 87147; 87186; 93005

== ENCOUNTER 2025-06-03 02:32 | Day surgery (SDC) | payer BC, SELFPAY ==
--- NOTE | 2025-05-26 07:55 | PC.NURSE ---
[facility] has started construction of its new state of the art ER which will open Spring 2026. With this, we anticipate parking may be a challenge for some our surgical patients and families. Parking spaces are limited but are available for all Surgical, obstetrics, and ER patients sharing this lot. If you arrive and find you are having a hard time finding a parking space, please note that we understand the challenges, please drive around the hospital and park near Hospital Entrance 1. When you enter this entrance, you can ask a volunteer to direct or take you back to the surgical waiting area to check in. We appreciate everyone?s understanding of these expected challenges while we build for your future. Report to the Outpatient Waiting Room, entrance under the green pavilion located off [address], at time __6 am on date _06/03/25 . Planned Procedure Time: _7:30 am .? Time changes happen often and if your time is changed the preop area will call you the afternoon before. - You and your visitor will be asked to self-screen and do not enter if you have any COVID symptoms. Please call surgeon if you need to reschedule. - A mask is optional within the hospital at this time. Patients may have clear liquids (water, carbonated beverages, clear teas, apple juice) until 3 hours prior to surgery ( 4:30 am) with a maximum of 20 ounces. - No food from midnight until time of surgery and no smoking, or chewing tobacco (or any form of nicotine). No chewing gum, candy or mints. - Take only the following medications with a SIP of water on the morning of surgery: ____SYNTHROID DO NOT STOP ANY OF YOUR OTHER PRESCRIPTION MEDICATIONS PRIOR TO SURGERY EXCEPT THE FOLLOWING Hold all vitamins and supplements for 3 days per anesthesiologist.LAST DOSE05/30/25 Medications to discontinue per physician DICLOFENAC HOLD 7 DAYS PRE OP PER DR MCCULLOUGH LAST DOSE05/26/25 Date to take last dose TOTAL JOINT CLASS 06/02/25 AT 10 AM Please no make-up, nail turkmen, hairspray, perfume, deodorant, or body powder the day of surgery.? No jewelry (including any body piercings) or valuables the day of surgery, leave them at home.? Please take a shower or bath the night before, or the morning of, surgery with an antibacterial soap.? Wear comfortable, loose fitting clothing.? Children are encouraged to wear pajamas. - Jewelry must be removed prior to entering the operating room.? Rings and piercings that are not removed may be cut off. - The hospital will not accept responsibility for valuables.? - Please leave all valuables, including medications, at home the day of surgery. If you are going home after surgery, a licensed long haul truck driver must drive you home.? - NO public transportation without another adult if you receive anesthesia. - We recommend that an adult stay with you for 24 hours following discharge. - We also recommend that you do not drive, make important decision, drink alcoholic beverages, or take any drugs that were not prescribed by your health care provider for at least 24 hours after your discharge time. For Pediatric surgeries, we recommend two adults accompany the child home. Follow any additional instructions given to you from your surgeon. verbal and written instructions given to ___PATIENT and asked if any additional questions and then verbalized understanding. Patient advised to call surgeon office or pre surgery nurse liaison [phone] if any additional questions.
[2025-05-26 08:01] VITALS: BMI 31.1
[2025-05-26 08:48] VITALS: BP 122/78; PULSE 77; RESP 18; TEMP 36.9; O2SAT 98
--- NOTE | 2025-06-02 07:24 | PM.IMHP2 ---
H&P: HPI History of Present Illness Date/Time: 06/02/25 07:24 Chief Complaint: Right knee DJD Narrative: 64-year-old female presents today for a right total knee arthroplasty. She has been having progressively worsening symptoms in the right knee over the course the last year. She has had 2 cortisone injections this year without any significant improvement her symptoms. Last injection was time or night to this year. Patient has been on meloxicam as well as diclofenac this year neither which have offered her much improvement of her symptoms. She does have kghq-vf-[id number] lateral compartment osteoarthritis in the knee. Patient feels this point she is having significant symptoms on a daily basis and it is affecting her daily activities. She feels she is ready proceed with total knee arthroplasty at this point rather than continue nonsurgical treatment. Physical exam: 64-year-old female alert pleasant. She is 5 ft 6 189 lb BMI is 31. She has no effusion in the right knee. Range of motion is from 0-135 degrees. Moderate tenderness over the mid lateral joint line. Extremely severe pain with patellofemoral grind. There is prominent crepitus of the patellofemoral joint with range of motion. She has normal quad strength. Normal stability in the knee. Hip range of motion is full without discomfort, negative Stinchfield maneuver. 2+ dorsalis pedis and posterior tibial artery pulse palpable. Normal sensation right lower extremity. No edema. X-rays: X-rays the right knee demonstrate [id number] lateral compartment osteoarthritis on the PA flexion view and mild narrowing of the patellofemoral joint. Impression: 64-year-old female who has qdgr-[id number] lateral compartment osteoarthritis the right knee. She has been having worsening symptoms over the course of last year. Nonsurgical treatments have failed to improve her symptoms. Patient feels she is ready proceed with total knee arthroplasty at this point. Surgical procedures well as the risks and complications were discussed in detail all questions were answered and we will proceed. She will stop her diclofenac 1 week prior to surgery. She was given Celebrex 200 mg to take for the week prior to surgery. Patient will see her primary care doctor for pre-surgical clearance. Hemoglobin 13.8 platelets were 373. Chem panel is all within normal limits creatinine 0.75. Her nasal swab did grow oxacillin sensitive Staph aureus she has been D colonizing Review of Systems Review of Systems: All systems reviewed & are unremarkable except as noted in HPI and below [facility] Past Medical History Medical History (Updated 05/26/25 @ 14:57 by Robert Heredia APRN) BMI 30.0-30.9,adult Unspecified asthma, uncomplicated Thrombocytosis PVCs (premature ventricular contractions) Pure hypercholesterolemia, unspecified Pure hypercholesterolemia Painful nose Other fatigue Dysphagia, unspecified Dietary counseling and surveillance (05/08/16) Candidiasis of breast Bilateral lower extremity edema Colon cancer screening Thyroid disease Asthma Arthritis Tubal Surgical History Surgical History Hx of colonoscopy H/O laparoscopy elbow Family History Family History Father Hypertension Patient's father is Sibling Patient's sister is in good health Patient's brother is in good health Malignant neoplasm of prostate Mother Patient's mother is Social History Social History (Updated 05/26/25 @ 14:29 by JOSE ANTONIO Winchester) Smoking packs per day: 2 Smoking cigarettes per day: 40.0 Years smoked: 7 Smoking pack-years: 14.00 Smoking status: Former smoker Tobacco type: cigarettes Second hand tobacco smoke exposure: No Smoking end date: 06/17/80 Additional smoking assessment comments: DENIES ANY FORM OF TOBACCO USE Alcohol intake: current Alcohol use details: rarely Substance use: never Substance use type: does not use Lack of Transportation: YES Lack of Food: Never True Current Housing: I Have Housing Concerned About Future Housing: No Difficulty Paying Gas/Electric Bills: No Difficulty Paying for Meds: No Currently Unemployed: No Education: Bachelor's Degree Difficulty w/ Childcare or Family Care: No Living arrangements: alone Occupation/Education: occupation 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 Instructions: .Provider Order Synthroid 112 mcg tablet 112 mcg PO DAILY #90 tabs 03/03/25 05/26/25 Rx (levothyroxine) celecoxib 200 mg capsule (Celebrex) 200 mg PO DAILY #7 caps 05/24/25 05/26/25 Rx cholecalciferol (vitamin D3) 25 25 mcg PO DAILY 05/26/25 05/26/25 History mcg (1,000 unit) capsule diphenhydramine 25 1 tablet PO HS PRN pain 05/26/25 05/26/25 History mg-acetaminophen 500 mg tablet (Acetaminophen PM) oregano oil 50 mg-flaxseed oil 25 1 cap PO DAILY 05/26/25 05/26/25 History mg capsule vitamin B complex 1 cap PO DAILY 05/26/25 05/26/25 History mupirocin 2 % topical ointment 1 applic topical BID #15 grams 05/30/25 Rx Allergies Allergy/AdvReac Type Severity Reaction Status Date / Time No Known Allergies Allergy NONE Verified 05/26/25 08:53 Exam Resp: Auscultation: clear to auscultation bilaterally Cardio: Rate: regular rate Rhythm: regular rhythm
[2025-06-03] VITALS (15 sets, daily range): BP systolic 117–140; BP diastolic 60–86; PULSE 81–102; RESP 13–22; TEMP 35.9–36.9; O2SAT 96–100; BMI 31.1
--- NOTE | ~2025-06-03 | XR_ITS ---
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 Findings: No acute fracture or malalignment. Arthroplasty unremarkable Soft tissues unremarkable. Impression: No acute fracture or malalignment. Reviewed, dictated and finalized at location P. HOE OPERATOR Impression: No acute fracture or malalignment.
--- OUTSIDE RECORDS SUMMARY | 2025-06-03 02:35 | XMS_ITS | Clinical Summary ---
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
[2025-06-03] MEDS: ACETAMINOPHEN 500 MG TABLET 1000 MG PO (06:22)
[2025-06-03] MEDS: VANCOMYCIN 1,250 MG/NS 250 ML 1,250 MG/250 ML BAG 166.67 MG IVPB (06:30)
[2025-06-03] MEDS: LACTATED RINGERS 1,000 ML 30 ML IV CONT ×2 (06:30→10:58)
[2025-06-03] MEDS: TRANEXAMIC ACID 1,000MG/ISO100 1,000 MG/100 ML BAG 200 MG IVPB (07:11)
--- NOTE | 2025-06-03 07:14 | WPDHPUPDATE1 ---
History and Physical Update Update Date/Time: 06/03/25 07:14 History and Physical has been reviewed, including an updated exam of the patient. There are NO changes in the patient's condition. Risks, benefits, and alternatives have been discussed and questions answered. Patient agrees to proceed with procedure.
--- NOTE | 2025-06-03 07:26 | WPDANESEPPF ---
Anes - Initial Pre Proc Eval Procedure: Operation Date: 06/03/25 07:30 Proposed Procedures p Right Total Knee Arthroplasty - Dewayne Rodriguez MD Date/Time: 06/03/25 07:26 Surgeon: Dewayne Rodriguez MD Pre Op Diagnosis: oa right knee Patient Data Age: 64 Gender: F Height: 1.65 m Weight: 85 kg Last Vital Signs Temp 98.5 F 06/03/25 06:10 Pulse 82 06/03/25 06:10 Resp 14 06/03/25 06:10 BP 129/86 06/03/25 06:10 Pulse Ox 100 06/03/25 06:10 O2 Del Method Room Air 06/03/25 06:10 Allergies Allergy/AdvReac Type Severity Reaction Status Date / Time No Known Allergies Allergy NONE Verified 06/03/25 06:40 Home Medications ?Medication ?Instructions ?Recorded ?Confirmed ?Type melatonin 5 mg capsule 10 mg PO HS 05/04/22 05/26/25 History diclofenac sodium 75 mg See Rx Instructions .Route 02/19/25 06/03/25 Rx tablet,delayed release .COMPLEX #60 tabs Held on 05/26/25. Instructions: .Provider Order Synthroid 112 mcg tablet 112 mcg PO DAILY #90 tabs 03/03/25 06/03/25 Rx (levothyroxine) celecoxib 200 mg capsule (Celebrex) 200 mg PO DAILY #7 caps 05/24/25 06/03/25 Rx cholecalciferol (vitamin D3) 25 25 mcg PO DAILY 05/26/25 06/03/25 History mcg (1,000 unit) capsule diphenhydramine 25 1 tablet PO HS PRN pain 05/26/25 05/26/25 History mg-acetaminophen 500 mg tablet (Acetaminophen PM) oregano oil 50 mg-flaxseed oil 25 1 cap PO DAILY 05/26/25 06/03/25 History mg capsule vitamin B complex 1 cap PO DAILY 05/26/25 06/03/25 History mupirocin 2 % topical ointment 1 applic topical BID #15 grams 05/30/25 06/03/25 Rx Patient hx anesthesia problems: none Family hx anesthesia problems: none Results Review: All pre-operative results and documents have been reviewed as part of the pre-operative evaluation. [facility] Past Medical History Medical History (Updated 05/26/25 @ 14:57 by Robert Heredia APRN) BMI 30.0-30.9,adult Unspecified asthma, uncomplicated Thrombocytosis PVCs (premature ventricular contractions) Pure hypercholesterolemia, unspecified Pure hypercholesterolemia Painful nose Other fatigue Dysphagia, unspecified Dietary counseling and surveillance (05/08/16) Candidiasis of breast Bilateral lower extremity edema Colon cancer screening Thyroid disease Asthma Arthritis Tubal Surgical History Surgical History Hx of colonoscopy H/O laparoscopy elbow Family History Family History Father Hypertension Patient's father is Sibling Patient's sister is in good health Patient's brother is in good health Malignant neoplasm of prostate Mother Patient's mother is Social History Social History (Updated 05/26/25 @ 14:29 by JOSE ANTONIO Winchester) Smoking packs per day: 2 Smoking cigarettes per day: 40.0 Years smoked: 7 Smoking pack-years: 14.00 Smoking status: Former smoker Tobacco type: cigarettes Second hand tobacco smoke exposure: No Smoking end date: 06/17/80 Additional smoking assessment comments: DENIES ANY FORM OF TOBACCO USE Alcohol intake: current Alcohol use details: rarely Substance use: never Substance use type: does not use Lack of Transportation: YES Lack of Food: Never True Current Housing: I Have Housing Concerned About Future Housing: No Difficulty Paying Gas/Electric Bills: No Difficulty Paying for Meds: No Currently Unemployed: No Education: Bachelor's Degree Difficulty w/ Childcare or Family Care: No Living arrangements: alone Occupation/Education: occupation 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 Informed Consent: The patient's anesthetic plan and its attendant risks and benefits were discussed with the patient/family/POA. Questions were solicited and answers provided to the satisfaction of the patient/family/POA.
[2025-06-03] MEDS: ceFAZolin 2 GM in SODIUM CHLORIDE 0.9% IV 50 ML 100 ML IVPB ×3 (07:30→23:22)
[2025-06-03] MEDS: SODIUM CHLORIDE 0.9% IV 37.7 ML, MORPHINE SULFATE INJ (*CRX) 2 MG, ROPivacaine HCL 1% 2... INFILTRATE (08:17)
[2025-06-03] MEDS: TRANEXAMIC ACID 1,000 MG/10 ML AMPUL 1000 MG IV PUSH (10:00)
[2025-06-03] MEDS: KETOROLAC 15 MG/ML VIAL (*BKC) IV PUSH ×3 (10:00→23:21)
--- NOTE | 2025-06-03 10:41 | P.OP_ITS ---
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 She received 2 g of Ancef weight based vancomycin 1 g of TXA preoperatively. Under anesthesia the right knee appear to hyperextend about for 5? with the ankle the supported by the pole strap she had passive flexion to 140. The right limb was prepped draped usual fashion. Limb was exsanguinated tourniquet elevated to 300 mmHg. Her pressure went up a little bit with the elevation the tourniquet and after a little while we realized we had a venous tourniquet we put the tourniquet down re-exsanguinated and real of a tourniquet which gave much better hemostasis for the procedure. A 7 in longitudinal midline incision was used and a vastus medialis splitting approach utilized splitting the vastus medialis at the superior pole the patella. The partial e xcision of infrapatellar fat pad carried out. Quadriceps synovectomy performed. The patella had mild knee osteoarthritis with central wear and scalloping. The center of the patella measured 21 mm in thickness. This was cut to 14.5 mm. Bone quality was good. A protector cap applied. There was bony eburnation of the posterior the portion of the lateral femoral condyle and posterior lateral tibial plateau. The a guide nas was inserted on femoral canal after aspiration of canal contents using the 5 degree cutting guide, 8 mm of bone removed the distal femur. Next the tibial plateau was cut. We removed approximately 3 or 4 mm of bone from the medial tibial plateau. Cut was made perpendicular to the axis of the tibia. PCL was recessed from the femur and meniscal remnants excised. The Flexion gap assessed. This was too tight to accept 8 mm spacer medially at 90? therefore an additional 2 mm of bone was removed the tibial plateau. With this the flexion gap measured 8 mm medially and 11 mm laterally. The femoral sizing guide was applied to the distal femur set at 4? of external rotation which matched [place] line. Posterior referencing pinholes were placed. Femur was cut to a vanguard 62.5 which fit line to line medial lateral and the anterior flange rest on the anterior cortex. The tibia was sized to a size 71 which fit line to line anteromedial to posterolateral at proper rotation. This was punched. We trialed with the 10 insert. The knee lacked 1 or 2? of extension and was tight in flexion allowing no anterior posterior drawer. Therefore, we had to remove 1 more mm of bone from the tibial plateau and this was carried out the tibia re punched and on read trialing with the 10 insert there was 0.5 mm of opening laterally at 90? 1.5 mm medially and 3 mm of anterior posterior drawer. The knee now came out to full extension with negative bounce the the with 1-2 mm of medial opening 2 mm of lateral opening in full extension. Bone proximal to the posterior femoral condylar portions of the trial implant the posterior femur was removed non read trialing the knee had gravity flexion to 135 with the arthrotomy closed passive 140 with no lift-off. The patella was sized to a 31. Lug holes were drilled and lug holes for femur were drilled. Composite thickness was 21 mm with the 31 thin. There is central patellar tracking throughout range of motion. We had put the tourniquet down about 85 minutes and at this point we re elevated the tourniquet after exsanguination of the limb wound was irrigated the the step drill was used to make multiple perforations in the tibial plateau and distal femur the bony surfaces thoroughly irrigated and dried. Using 2 batches of methylmethacrylate 1 the gentamicin powder, cement was applied to the size 71 vanguard tibial tray and the size 62.5 right cruciate retaining femoral component. Cement applied the tibia and pressurized tibial component fully seated cement applied the femur the femoral component fully seated the knee brought into extension with 11 mm 5 and 1 insert for pressurization and the 31 thin patella cemented. Tourniquet was released total tourniquet time approximately 100 minutes. Two additional g of Ancef 1 g TXA administered. After cement hardening excess cement was carefully sought for removed and hemostasis was achieved. We trialed with the 10 insert and had the same stability findings as above and the ten implant was chosen placed without difficulty and locked with a locking pin. Range of motion stability patellar tracking reconfirmed. Local anesthetic cocktail was injected into the periarticular soft tissues. Arthrotomy was closed with 2. Vicryl 1. Unidirectional barbed Stratafix suture. The split closed with 1. Vicryl. Skin closed with 2 subcutaneous Vicryl 3-0 subcuticular Monocryl and glue. EBL was 200 cc. There were no complications she was transferred postop recovery room stable condition. [facility] Billing Surgery - Charge Forward: Surgery Billing (Right total knee replacement)
--- NOTE | 2025-06-03 11:08 | PM.OP ---
Procedure Note - Brief Procedure Note - Brief Date of procedure: 06/03/25 oa right knee Procedure performed: Right total knee arthroplasty Surgeon: Ld Fitch PA-C Findings: 64-year-old female underwent right total knee arthroplasty on 06/03. I was involved in the procedure including positioning the patient on the OR table and 1st assisting through the time surgery. Total time spent was 3 hours
[2025-06-03] MEDS: fentaNYL CITRATE INJ (*CRX) 100 MCG/2 ML VIAL 25 MCG IV PUSH ×2 (12:28→12:30)
--- NOTE | 2025-06-03 13:18 | ADMGEN ---
This patient, Pricilla Frye, was admitted to [facility] S[facility] Room 322-02. Patient/family oriented to hospital policies and general routines including ID bracelet, bed and alarms, visiting hours, pain management, procedures, bathroom and other care routines, personal items, smoking policy, room service/diet, and visiting hours. Information on how to activate the Rapid Response Team has been discussed. Patient/Family are encouraged to report perceived risks to care and to ask questions if they do not understand what they are told or what they should do. Report received from [facility]
[2025-06-03] MEDS: ONDANSETRON INJ 4 MG/2 ML VIAL IV PUSH ×3 (13:34→23:23)
[2025-06-03] MEDS: ACETAMINOPHEN 325 MG TABLET 650 MG PO ×3 (14:55→20:59)
[2025-06-03] MEDS: oxyCODONE HCL (*CRX) 5 MG TAB IR PO ×3 (14:56→21:00)
--- NOTE | 2025-06-03 17:12 | PM.IMCN2 ---
Assessment and Plan Assessment and plan (1) Right knee DJD: Qualifiers: Osteoarthritis type: primary Qualified Code(s): M17.11 - Unilateral primary osteoarthritis, right knee Code(s): M17.11 - Unilateral primary osteoarthritis, right knee Status: Chronic Assessment and Plan: S/p right total knee arthroplasty. Management per orthopedic surgeon. - PT/OT - Pain control with acetaminophen, Celebrex, oxycodone, and morphine if NPO - Prophylactic apixaban - Encourage incentive spirometry - plan for d/c home on 06/04 (2) Hypothyroidism: Qualifiers: Hypothyroidism type: unspecified Qualified Code(s): E03.9 - Hypothyroidism, unspecified Code(s): E03.9 - Hypothyroidism, unspecified Status: Chronic Assessment and Plan: Continue levothyroxine (3) Postoperative nausea: Code(s): R11.0 - Nausea; Z98.890 - Other specified postprocedural states Status: Acute Assessment and Plan: Patient complains of nausea since surgery. Is able to keep liquids and light food down - Continue Zofran p.r.n. Prior Studies I have reviewed the following patient records and this information was taken into consideration when formulating the assessment and plan.: previous labs, previous ER visits, previous hospitalizations and previous clinic visits Time Spent with Patient Time with patient: less than 45 minutes HPI Date of Consult Consult date: 06/03/25 Requesting Physician: Dewayne Rodriguez MD Primary Care Provider: Robert Heredia APRN Consult Narrative Reason for consult: Medical management Narrative: Pricilla Frye is a 64 year old female with a past medical history of asthma, hypercholesterolemia, arthritis, hypothyroidism presents to the hospital on 06/03/2025 for a planned right total knee arthroplasty with Dr. Rodriguez. The patient has had arthritis of her right knee for over a year. In March of 2024 the patient began following with the orthopedic surgeon and at that time the right knee x-ray demonstrate narrowing of the lateral compartment joint space to 1.6 mm on the PA flexion Stork view. Milder narrowing noted on the AP stork view in the lateral compartment. Patient started diclofenac and received a cortisone injection on that visit as well. The patient plays pickleball often and it is important for her to continue to be able to do this. By the time of her most recent office visit on 05/24/25, the patient's right knee arthritis had progressed to [id number] and the cortisone injections only provide minimal relief. Her increased dose of diclofenac provides minimal benefit as well. Her ADLs had become very limited as a result. Patient wished to proceed with right total knee arthroplasty. Patient tolerated the procedure well. Review of Systems Review of Systems: All systems reviewed & are unremarkable except as noted in HPI and below PMFSH Past Medical History Medical History (Updated 06/03/25 @ 20:53 by Umu Castillo APRN) BMI 30.0-30.9,adult Unspecified asthma, uncomplicated Thrombocytosis PVCs (premature ventricular contractions) Pure hypercholesterolemia, unspecified Pure hypercholesterolemia Painful nose Other fatigue Dysphagia, unspecified Dietary counseling and surveillance (05/08/16) Candidiasis of breast Bilateral lower extremity edema Colon cancer screening Thyroid disease Asthma Arthritis Tubal Surgical History Surgical History Hx of colonoscopy H/O laparoscopy elbow Family History Family History Father Hypertension Patient's father is Sibling Patient's sister is in good health Patient's brother is in good health Malignant neoplasm of prostate Mother Patient's mother is Social History Social History (Updated 05/26/25 @ 14:29 by JOSE ANTONIO Winchester) Smoking packs per day: 1 Smoking cigarettes per day: 20.0 Years smoked: 6 Smoking pack-years: 6.00 Smoking status: Former smoker Tobacco type: cigarettes Second hand tobacco smoke exposure: No Smoking end date: 06/17/80 Additional smoking assessment comments: DENIES ANY FORM OF TOBACCO USE Alcohol intake: never Alcohol use details: rarely Substance use: never Substance use type: does not use Lack of Transportation: No Lack of Food: Never True Current Housing: I Have Housing Concerned About Future Housing: No Difficulty Paying Gas/Electric Bills: No Difficulty Paying for Meds: No Currently Unemployed: No Education: Never Attended/Kindergarten Only Difficulty w/ Childcare or Family Care: No Living arrangements: alone Occupation/Education: occupation 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 Instructions: .Provider Order Synthroid 112 mcg tablet 112 mcg PO DAILY #90 tabs 03/03/25 06/03/25 Rx (levothyroxine) celecoxib 200 mg capsule (Celebrex) 200 mg PO DAILY #7 caps 05/24/25 06/03/25 Rx cholecalciferol (vitamin D3) 25 25 mcg PO DAILY 05/26/25 06/03/25 History mcg (1,000 unit) capsule diphenhydramine 25 1 tablet PO HS PRN pain 05/26/25 05/26/25 History mg-acetaminophen 500 mg tablet (Acetaminophen PM) oregano oil 50 mg-flaxseed oil 25 1 cap PO DAILY 05/26/25 06/03/25 History mg capsule vitamin B complex 1 cap PO DAILY 05/26/25 06/03/25 History mupirocin 2 % topical ointment 1 applic topical BID #15 grams 05/30/25 06/03/25 Rx Allergies Allergy/AdvReac Type Severity Reaction Status Date / Time No Known Allergies Allergy NONE Verified 06/03/25 13:20 Vital Signs Vital Signs - 24 hr 06/03/25 06:10 06/03/25 10:58 06/03/25 11:10 Temperature 98.5 F 98.2 F Pulse Rate 82 102 H 97 Respiratory Rate 14 15 16 Blood Pressure 129/86 126/65 137/68 Pulse Oximetry 100 100 100 Oxygen Delivery Room Air Simple Face Mask Simple Face Mask Oxygen Flow Rate 10 10 06/03/25 11:25 06/03/25 11:40 06/03/25 11:55 Temperature Pulse Rate 99 100 91 Respiratory Rate 16 16 16 Blood Pressure 140/85 137/80 130/68 Pulse Oximetry 100 99 97 Oxygen Delivery Simple Face Mask Room Air Room Air Oxygen Flow Rate 10 06/03/25 12:10 06/03/25 12:25 06/03/25 12:40 Temperature Pulse Rate 89 96 90 Respiratory Rate 15 16 13 Blood Pressure 133/74 132/72 117/75 Pulse Oximetry 97 97 96 Oxygen Delivery Room Air Room Air Room Air Oxygen Flow Rate 06/03/25 13:10 06/03/25 13:25 06/03/25 13:55 Temperature 96.6 F L 96.8 F L 97.0 F L Pulse Rate 94 97 91 Respiratory Rate 18 18 18 Blood Pressure 135/71 132/77 128/69 Pulse Oximetry 99 99 100 Oxygen Delivery Oxygen Flow Rate 06/03/25 14:26 06/03/25 14:55 06/03/25 14:59 Temperature 97.3 F L Pulse Rate 98 Respiratory Rate 22 H Blood Pressure 129/65 Pulse Oximetry 98 Oxygen Delivery Room Air Room Air Oxygen Flow Rate Exam Narrative: GENERAL: non-toxic appearing, in no acute distress. HEAD: Normocephalic, atraumatic. EYES: PERRLA. Conjunctivae clear. NOSE: Normal no drainage. THROAT: Pharynx clear, no exudate. NECK: ?Trachea midline. No adenopathy, no masses. RESPIRATORY: Airway patent, respirations nonlabored. CTA. CARDIOVASCULAR: Regular rate and rhythm BREASTS: ?Defer GASTROINTESTINAL: ?Abdomen is soft and nontender. ?No organomegaly. ?Bowel sounds normal in all quadrants. GENITOURINARY: ?Defer MUSCULOSKELETAL: Moves all extremities. No gross deformities. ?Silver dressing to right knee. Distal pulses intact. Extremity warm SKIN: Warm, dry, normal color. NEURO: A&O X4. Speech clear PSYCHIATRIC: Normal interaction Quality VTE Prophylaxis VTE prophylaxis: mechanical ordered Hospitalist [facility] Advance Care Plan I have confirmed that the patient's Advanced Care Plan is present, code status is documented, or surrogate decision maker is listed in patient medical record.: Yes Medication Reconciliation I have utilized all available resources to obtain, update and review the patients current medications (includes all prescriptions, OTC, herbals, cannabis, and nutritional supplements).: Yes
[2025-06-03] MEDS: SODIUM CHLORIDE 0.9% IV 1,000 ML 125 ML IV CONT (17:23)
[2025-06-03] MEDS: SENNA/DOCUSATE SODIUM TABLET 2 TAB PO (18:08)
[2025-06-03] MEDS: MUPIROCIN 2% OINT 22 GM TUBE 1 APPLIC TOPICAL (18:11)
[2025-06-03] MEDS: VANCOMYCIN HCL 1,000 MG in SODIUM CHLORIDE 0.9% IV 250 ML 250 MG IVPB (18:47)
[2025-06-04] MEDS: ACETAMINOPHEN 325 MG TABLET 650 MG PO ×4 (01:31→12:15)
[2025-06-04] MEDS: oxyCODONE HCL (*CRX) 5 MG TAB IR PO ×2 (01:31→05:11)
[2025-06-04] MEDS: ceFAZolin 2 GM in SODIUM CHLORIDE 0.9% IV 50 ML 100 ML IVPB (06:17)
[2025-06-04] MEDS: LEVOTHYROXINE SODIUM 112 MCG TABLET PO (06:17)
[2025-06-04 06:30] LABS: Hematocrit 36.5 % (37.0-47.0); Hemoglobin 11.1 g/dL (12.0-15.0); Immature Granulocyte Percent A 0.5 % (0-0.5); Lymphocytes Absolute Auto 1.90 K/mm3 (0.9-3.2); Mean Corpuscular HGB Conc 30.4 g/dl (32-36); Mean Corpuscular Hemoglobin 29.4 pg (26-34); Mean Corpuscular Volume 96.8 fl (80-100); Nucleated Red Blood Cells Absolute Auto 0.000 K/mm3 (0.0-0.012); Nucleated Red Blood Cells Perc 0.0 % (0.0-0.2); Platelet Count Result 311 k/mm3 (150-375); Red Blood Count 3.77 M/mm3 (4.2-5.4); White Blood Count 13.8 K/mm3 (4.5-10.0)
[2025-06-04] MEDS: VANCOMYCIN HCL 1,000 MG in SODIUM CHLORIDE 0.9% IV 250 ML 250 MG IVPB (06:46)
[2025-06-04 06:53] LABS: Anion Gap 5 mmol/L (4-12); Blood Urea Nitrogen 11 mg/dL (7-17); Calcium 8.9 mg/dL (8.4-10.2); Carbon Dioxide 23 mmol/L (22-30); Chloride 109 mmol/L (98-107); Estimated CRCL calculation 87 ml/min; Estimated Glomerular Filt Rate > 60; Glucose 98 mg/dL (65-110); Potassium 3.8 mmol/L (3.4-5.0); Sodium 137 mmol/L (137-145)
[2025-06-04] MEDS: ONDANSETRON INJ 4 MG/2 ML VIAL IV PUSH (06:54)
--- NOTE | 2025-06-04 07:28 | PM.PNORT ---
Subjective Subjective Date/Time Seen: 06/04/25 07:28 Interval history: Postop day 1 patient is alert. She is afebrile vital signs are stable. Morning labs are noted. Patient was up walking yesterday with therapy be doing relatively well. She has had nausea since surgery. No emesis. Patient's dressing is dry and intact. Neurovascularly she is intact. Overall pain is mild. I will decrease her oxycodone 2.5 mg hopefully that will help with the nausea. Also give her a dose of Decadron this morning and hopefully that will help as well with the nausea. Will plan have the patient work with therapy this morning and if she is doing well she will be discharged home later today. I will also send her home with oral Zofran use on as-needed basis. Objective Data Vital Signs Vital Signs: Vital Signs - 24 hr 06/03/25 10:58 06/03/25 11:10 06/03/25 11:25 Temperature 98.2 F Pulse Rate 102 H 97 99 Respiratory Rate 15 16 16 Blood Pressure 126/65 137/68 140/85 Pulse Oximetry 100 100 100 Oxygen Delivery Simple Face Mask Simple Face Mask Simple Face Mask Oxygen Flow Rate 10 10 10 06/03/25 11:40 06/03/25 11:55 06/03/25 12:10 Temperature Pulse Rate 100 91 89 Respiratory Rate 16 16 15 Blood Pressure 137/80 130/68 133/74 Pulse Oximetry 99 97 97 Oxygen Delivery Room Air Room Air Room Air Oxygen Flow Rate 06/03/25 12:25 06/03/25 12:40 06/03/25 13:10 Temperature 96.6 F L Pulse Rate 96 90 94 Respiratory Rate 16 13 18 Blood Pressure 132/72 117/75 135/71 Pulse Oximetry 97 96 99 Oxygen Delivery Room Air Room Air Oxygen Flow Rate 06/03/25 13:25 06/03/25 13:55 06/03/25 14:26 Temperature 96.8 F L 97.0 F L Pulse Rate 97 91 Respiratory Rate 18 18 Blood Pressure 132/77 128/69 Pulse Oximetry 99 100 Oxygen Delivery Room Air Oxygen Flow Rate 06/03/25 14:55 06/03/25 14:59 06/03/25 18:55 Temperature 97.3 F L 97.1 F L Pulse Rate 98 81 Respiratory Rate 22 H 14 Blood Pressure 129/65 120/62 Pulse Oximetry 98 99 Oxygen Delivery Room Air Oxygen Flow Rate 06/03/25 20:00 06/03/25 20:19 Temperature 97.9 F Pulse Rate 84 Respiratory Rate 17 Blood Pressure 121/60 Pulse Oximetry 99 Oxygen Delivery Room Air Oxygen Flow Rate Intake/Output Intake/Output: Intake & Output 06/01/25 06/02/25 06/03/25 06/04/25 23:59 23:59 23:59 23:59 Intake Total 800 Balance 800 Meds/Results Medications: Active Medications Generic Name Dose Route Start Last Admin Trade Name Freq PRN Reason Stop Dose Admin Acetaminophen 650 mg 06/03/25 13:00 06/04/25 05:11 Acetaminophen 325 Mg Tablet PO 650 mg Q4H NURA Administration Apixaban 2.5 mg 06/04/25 09:00 Apixaban 2.5 Mg Tablet PO Q12HR NURA Celecoxib 200 mg 06/04/25 08:00 Celecoxib 200 Mg Capsule PO DAILY@0800 [facility] Cephalexin HCl 500 mg 06/04/25 08:00 Cephalexin 500 Mg Capsule PO Q6HR NURA Diphenhydramine HCl 25 mg 06/03/25 12:50 Diphenhydramine Hcl Inj 50 Mg/Ml Vial IV PUSH Q6H PRN Itching Vancomycin HCl 1,000 mg/ 250 mls @ 250 mls/hr 06/03/25 18:30 06/04/25 06:46 Sodium Chloride IVPB 06/04/25 07:29 250 mls/hr Q12H NURA Administration Cefazolin Sodium 2 gm/ Sodium 50 mls @ 100 mls/hr 06/03/25 15:00 06/04/25 06:17 Chloride IVPB 06/04/25 07:29 100 mls/hr Q8H NURA Administration Levothyroxine Sodium 112 mcg 06/04/25 06:30 06/04/25 06:17 Levothyroxine Sodium 112 Mcg Tablet PO 112 mcg DAILY@0630 [facility] Administration Morphine Sulfate 2 mg 06/03/25 12:50 Morphine Sulfate (*Crx) 4 Mg/Ml Inj IV PUSH Q2H PRN Pain Rated 7-10 Mupirocin 1 applic 06/03/25 17:00 06/03/25 18:11 Mupirocin 2% Oint 22 Gm Tube TOPICAL 1 applic BID NURA Administration Naloxone HCl 0.1 mg 06/03/25 12:50 Naloxone Hcl 0.4 Mg/Ml Vial IV PUSH Q2M PRN Opiate Reversal Ondansetron HCl 4 mg 06/03/25 12:50 06/04/25 06:54 Ondansetron Inj 4 Mg/2 Ml Vial IV PUSH 4 mg Q4H PRN Administration Nausea And Vomiting Oxycodone HCl 5 mg 06/03/25 13:00 06/04/25 05:11 Oxycodone Hcl (*Crx) 5 Mg Tab Ir PO 5 mg Q4H NURA Administration Oxycodone HCl 5 mg 06/03/25 12:50 Oxycodone Hcl (*Crx) 5 Mg Tab Ir PO Q4H PRN Pain Rated 7-10 Polyethylene Glycol 17 gm 06/04/25 09:00 Polyethylene Glycol 3350 17 Gm Powd.Pack PO QAM NURA Senna/Docusate Sodium 2 tab 06/03/25 17:00 06/03/25 18:08 Senna/Docusate Sodium Tablet PO 2 tab BID NURA Administration Vitamin B Complex 1 cap 06/04/25 09:00 Vitamin B Complex Capsule PO DAILY [facility] Vitamin D 25 mcg 06/04/25 09:00 Cholecalciferol (Vitamin D3) 25 Mcg (1,000 Units) Tablet PO DAILY [facility] Radiology Results: ITS Impressions Knee X-Ray 06/03/25 11:02 Impression: No acute fracture or malalignment. Labs Labs: Laboratory Results - last 24 hr 06/04/25 06:14 WBC 13.8 H RBC 3.77 L Hgb 11.1 L Hct 36.5 L MCV 96.8 MCH 29.4 MCHC 30.4 L RDW 12.0 Plt Count 311 MPV 9.8 Immature Gran % (Auto) 0.5 Neut % (Auto) 77.0 H Lymph % (Auto) 13.8 L Hodgeman % (Auto) 8.5 Eos % (Auto) 0.0 Baso % (Auto) 0.2 Lymph # (Auto) 1.90 Hodgeman # (Auto) 1.2 H Eos # (Auto) 0.0 Baso # (Auto) 0.0 Abs Immat Gran (auto) 0.07 H Absolute Neuts (auto) 10.6 H Absolute Nucleated RBC 0.000 Nucleated RBC % 0.0 Sodium 137 Potassium 3.8 Chloride 109 H Carbon Dioxide 23 Anion Gap 5 BUN 11 D Creatinine 0.61 L Estim Creat Clear Calc 87 Estimated GFR > 60 Glucose 98 Calcium 8.9
[2025-06-04 08:00] VITALS: BP 107/56; PULSE 74; RESP 18; TEMP 36; O2SAT 94
[2025-06-04] MEDS: SENNA/DOCUSATE SODIUM TABLET 2 TAB PO (10:22)
[2025-06-04] MEDS: oxyCODONE HCL (*CRX) 2.5 MG TAB IR PO ×2 (10:22→11:53)
[2025-06-04] MEDS: VITAMIN B COMPLEX CAPSULE 1 CAP PO (10:23)
[2025-06-04] MEDS: CELECOXIB 200 MG CAPSULE PO (10:23)
[2025-06-04] MEDS: CHOLECALCIFEROL (VITAMIN D3) 25 MCG (1,000 UNITS) TABLET PO (10:23)
[2025-06-04] MEDS: APIXABAN 2.5 MG TABLET PO (10:23)
[2025-06-04] MEDS: CEPHALEXIN 500 MG CAPSULE PO ×2 (10:23→11:53)
[2025-06-04] MEDS: dexAMETHasone SOD PHOS INJ 10 MG/ML 1 ML VIAL 8 MG IV PUSH (11:24)
[2025-06-04 11:54] VITALS: BP 110/64; PULSE 68; RESP 20; TEMP 36.3; O2SAT 99
== END 2025-06-04 12:45 | disposition home or self-care (01) ==
LOC: ANHSURGERY 06:02 → ANH3MEDSUR 12:52
PROVIDERS: PCP Nurse Practitioner; Visit Provider Orthopaedic Surgery
PROC: (CPT 27447; principal; 2025-06-03 07:30)
DX: M17.11 Unilateral primary osteoarthritis, right knee (principal); J45.909 Unspecified asthma, uncomplicated; D75.839 Thrombocytosis, unspecified; I49.3 Ventricular premature depolarization; E78.00 Pure hypercholesterolemia, unspecified; R53.83 Other fatigue; E07.9 Disorder of thyroid, unspecified; Z79.1 Long term (current) use of non-steroidal anti-inflammatories (NSAID); Z98.890 Other specified postprocedural states; Z87.891 Personal history of nicotine dependence; Z80.42 Family history of malignant neoplasm of prostate
CPT/HCPCS: 27447; 36415; 73560; 80048; 85025; 97110; 97116; 97161; 97165; 97530; 97535; J0690; A9270; C1713; C1776; J0166; J1100; J1171; J1885; J2003; J2250; J2270; J2405; J2704; J2795; J3010; J3290; J3373; J7030; J7050; J7120